=== PATIENT | female | born 2000 | race Caucasian/White ===

== ENCOUNTER 2023-05-27 14:32 | Emergency (ER) | payer OTHER ==
[2023-05-27 14:45] VITALS: BP 109/69; PULSE 79; RESP 18; TEMP 98; BMI 26.4
[2023-05-27] MEDS ORDERED: ACETAMINOPHEN 500 MG TABLET (FP) PO ONE (15:20)
[2023-05-27] MEDS ORDERED: ACETAMINOPHEN 500 MG TABLET (FP) ONE (15:22)
== END 2023-05-27 16:27 | disposition home or self-care (01) ==
LOC: JERFT 14:32
CPT/HCPCS: 73660-TC-FY